=== PATIENT | female | born 1945 | race Caucasian/White ===

== ENCOUNTER → 2017-10-30 | Outpatient (CLI) | payer MEDICARE, MEDICAID ==
[~2017-10-30] MED LIST: CALCTAB80 PO; DICL75 PO; FOSA70TA PO; MEVA40TA PO; OMPR20CCR PO; TRAM50 PO; VENTAER INH
--- NOTE | 2017-10-30 13:34 | RADRPT ---
EXAM DATE/TIME: 10/30/2017 13:09 [place] COMPARISON: No previous studies available for comparison. EXTERNAL COMPARISON : [facility], May 2016 INDICATIONS : Short of breath, lung nodule RADIATION DOSE: 5.12 CTDIvol (mGy) MEDICAL HISTORY : None SURGICAL HISTORY : None. ENCOUNTER: Initial ACUITY: 1 day PAIN SCALE: 1/10 LOCATION: chest superior medial TECHNIQUE: Volumetric scanning of the chest was performed. Using automated exposure control and adjustment of t he mA and/or kV according to patient size, radiation dose was kept as low as reasonably achievable to obtain optimal diagnostic quality images. DICOM format image data is available electronically for r eview and comparison. Follow-up recommendations for detected pulmonary nodules are based at a minimum on nodule size and pa tient risk factors according to Fleischner Society Guidelines. FINDINGS: LUNGS: Irregular 8 mm nodule anteriorly left lung PLEURAE: Pleural calcification on the left with minimal pleural thickening on the right. MEDIASTINUM: The heart and great vessels demonstrate no acute abnormality. There is no mediastinal or hilar lymph adenopathy. AXILLAE: Within normal limits. No lymphadenopathy. MUSCULOSKELETAL: Moderate degenerative changes. MISCELLANEOUS: The visualized upper abdominal organs demonstrate no acute abnormality. CONCLUSION: Pleural calcification anteriorly on the left Minimal pleural thickening anteriorly on the right Irregular 8 mm nodular opacity, low index of suspicion for neoplasm. Followup CT scan in 6 months would be of benefit. The findings described above include a newly detected solid pulmonary nodule of 6-8 mm average diamet er. Guidelines from the Fleischner Society for the follow-up and management of newly detected indeter minate pulmonary nodules in persons >34 years old depend on nodule size (average of length and width) and underlying risk factors (including smoking and other risk factors). Please consider the followi ng recommendations after clinical assessment of risk factors. For 6-8 mm nodules: In low risk patien ts, initial follow-up CT at 6-12 months, then 18-24 months if no change. In high risk patients, init ial follow-up CT at 3-6 months, then 9-12 and 24 months if no change. Aurelio Anderson MD FACR on October 30, 2017 at 13:28 Board Certified Radiologist. This report was verified electronically.
== END ==
LOC: HRAD 12:28
DX: J45.909 Unspecified asthma, uncomplicated (principal); R06.00 Dyspnea, unspecified; R91.1 Solitary pulmonary nodule
CPT/HCPCS: 71250

== ENCOUNTER → 2017-10-31 | Outpatient (CLI) | payer MEDICARE, MEDICAID | LOC: HRSP 09:52 | DX: J45.909 Unspecified asthma, uncomplicated (principal); R06.00 Dyspnea, unspecified; R91.1 Solitary pulmonary nodule | CPT/HCPCS: 94060; 94726; 94729 ==